=== PATIENT | male | born 1970 | race Caucasian/White ===

== ENCOUNTER 2024-01-12 09:11 | Day surgery (SDC) | payer OTHER ==
[2024-01-12] MEDS: LIDOCAINE 1% (10MG/ML) FOR IV START INTRADERMA PRN (09:55)
[2024-01-12] MEDS: LACTATED RINGERS 1,000 ML IV SCH (09:55)
[2024-01-12 10:26] VITALS: TEMP 97.5
[2024-01-12] MEDS ORDERED: PROPOFOL 10 MG/ML 20 ML VIAL IV ONE (10:40)
[2024-01-12 11:14] VITALS: RESP 16
--- NOTE | 2024-01-12 11:39 | P.PCN ---
Date of Procedure: 01/12/24 Procedure(s) Performed: BRIEF HISTORY: Patient is a 53-year-old pleasant white man scheduled for an elective colonoscopy as a part of screening for colon cancer. PROCEDURE PERFORMED: Colonoscopy. PREOPERATIVE DIAGNOSIS: Screening for colon cancer. IV sedation per Anesthesia. PROCEDURE: After informed consent was obtained, the patient, was brought into the endoscopy unit. IV sedation was administered by Anesthesia under continuous monitoring. Digital rectal examination was normal. Initially the Olympus CF-160 flexible video colonoscope was then inserted in the rectum, gradually advanced into the cecum without any difficulty. Careful examination was performed as the scope was gradually being withdrawn. Ileocecal valve and the appendiceal orifice were visualized and appeared normal. Prep was excellent. Mucosa of the cecum, ascending colon, transverse colon, descending colon, sigmoid colon, and rectum appeared normal. Scattered sigmoid diverticulosis. Retroflexion was performed in the rectum and no lesions were seen. The patient tolerated the procedure well. IMPRESSION: Normal-appearing colon from rectum to cecum with norms of colorectal neoplasia. Scattered sigmoid diverticulosis. RECOMMENDATIONS: Findings of this examination were discussed with the patient as well as his family. He was advised to have repeat screening colonoscopy in 10 years.
[2024-01-12 11:59] VITALS: BP 126/68; PULSE 78
== END 2024-01-12 11:31 | disposition home or self-care (01) ==
LOC: ORWHC2ENDO 09:11
PROVIDERS: ATTEND Internal Medicine Gastroenterology
DX: Z12.11 Encounter for screening for malignant neoplasm of colon (principal); K57.30 Diverticulosis of large intestine without perforation or abscess without bleeding; K21.9 Gastro-esophageal reflux disease without esophagitis; F17.200 Nicotine dependence, unspecified, uncomplicated; Z88.0 Allergy status to penicillin; Z88.6 Allergy status to analgesic agent; Z79.899 Other long term (current) drug therapy
CPT/HCPCS: 45378; J2704

== ENCOUNTER → 2024-05-11 | Outpatient (CLI) | payer OTHER ==
--- NOTE | 2024-05-29 09:03 | MR ---
Site ID synapse default Patient Gerson Dowell ID [id number] 1970 Age/Gender: 53Y, M Order # N/A Procedure MR cervical spine wo con Date 05/11/2024 6:34:08 AM EXAMINATION TYPE: MR cervical spine wo con DATE OF EXAM: 05/11/2024 COMPARISON: Cervical spine radiograph 05/07/2024 HISTORY: 53-year-old male with history of neck pain, numbness down both arms TECHNIQUE: Multiplanar, multisequence images of the cervical spine were acquired without contrast. FINDINGS: Alignment: The cervical vertebral bodies have preserved heights. Alignment is within normal limits gi keshia patient positioning. Bones: Bone signal is within normal limits. Multilevel degenerative disc disease is noted most prono unced at C5-C7. Cord: The spinal cord is unremarkable with regards to their signal intensity and morphology. Discs: Multilevel disc desiccation is present. C2-C3: No significant disc pathology. The spinal canal is patent. No neural foraminal stenosis. C3-C4: Minimal central disc bulge with minimal effacement of the anterior thecal sac. Uncovertebral j oint hypertrophy resulting in mild bilateral neural foraminal stenosis. C4-C5: Small central disc protrusion with minimal effacement of the anterior thecal sac. No signific ant neural foraminal stenosis. C5-C6: Eccentric right posterior disc osteophyte complex with extension into the subarticular and for aminal zone. Results in mild central canal stenosis. There is severe right neuroforaminal stenosis. T he left neural foramen is patent. C6-C7: Broad-based disc bulge with minimal effacement of the anterior thecal sac. Uncovertebral joint hypertrophy resulting in mild left neural foraminal stenosis. The right neural foramen is patent. C7-T1: No significant disc pathology. The spinal canal is patent. No neural foraminal stenosis. Other: None. IMPRESSION: Mild multilevel disc degeneration as described above. Mild central canal stenosis secondary to university lecturer ior distance accomplished at C5-C6 which contributes to severe right neural foraminal stenosis.
== END | disposition home or self-care (01) ==
LOC: RADMRIMAIN 07:30
PROVIDERS: ATTEND Orthopaedic Surgery
DX: M47.812 Spondylosis without myelopathy or radiculopathy, cervical region (principal); M48.02 Spinal stenosis, cervical region; M50.10 Cervical disc disorder with radiculopathy, unspecified cervical region
CPT/HCPCS: 72141

== ENCOUNTER → 2024-10-09 | Outpatient (CLI) | payer OTHER | END | disposition home or self-care (01) | LOC: LABWHC1 08:37 | PROVIDERS: ATTEND Orthopaedic Surgery | DX: Z01.812 Encounter for preprocedural laboratory examination (principal); M50.20 Other cervical disc displacement, unspecified cervical region; M50.122 Cervical disc disorder at C5-C6 level with radiculopathy; Z22.322 Carrier or suspected carrier of Methicillin resistant Staphylococcus aureus | CPT/HCPCS: 86850; 86900; 86901; 87070 ==

== ENCOUNTER 2024-10-14 05:37 | Day surgery (SDC) | payer OTHER ==
--- NOTE | 2024-10-13 19:58 | P.HPOR ---
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 He reports constant, moderate to severe aching neck pain with associated LUE radiculopathy, heaviness, and weakness. His symptoms are particularly affecting his right-hand dominant activities, including writing. Physical exam reveals decreased motor strength in the right upper extremity (3- 4/5), positive Spurling's sign on the right, and present Contreras's sign on the right. Imaging demonstrates a large central to right paracentral disc herniation at C5-C6 causing moderate to severe central and right foraminal stenosis, with associated local kyphotic changes. DEMOGRAPHICS: Age: 53 year Height: 6'2" Weight: 255 lbs BP:136/72 BMI: 32.74 kg/m2 Occupation: *Electronic repair CC: cervical pain VAS: 3-5 HISTORY: Mr. Dowell presents to the office today, 10/09/24, for a pre-operative appointment preceding his C5-6 ACDF. He states that he has severe neck pain that is progressive over the past 4 months as well as LUE radiculopathy and now a feeling of heaviness and weakness. He states that this pain is aching and constant and can be moderate to severe at times. He states that he had an MRI. He states that he has done physical therapy which helped somewhat she preceded therapy in 2018 which helped. But now does not help. He states that his symptoms are now progressive despite taking ibuprofen 800 mg 3 times a day which is now causing his stomach to hurt and forcing him to take omeprazole. He denies any trauma to the area he is [id number] which is causing him to have issues with writing. H8 Patient denies any f/c/sob/cp, perineal numbness or tingling, bowel, or bladder incontinence/retention. Patient is ambulatory under his own power P1 The patients past social, medical, family, surgical history, as well as review of systems, have been reviewed. Please refer to the History and Physical form that has been scanned into our electronic medical record system. R0 16 points review of systems completed and as stated in HPI, all other systems reviewed are negative. PAST TREATMENTS: PAST IMAGING: YES -x-ray MRI TRAUMA RELATED: NO - WORK RELATED: NO - PT IN LAST 6 MONTHS: YES -2 different rounds of therapy as well as therapy in 2018 none of which provided relief PHYSICIAN DIRECTED HOME EXERCISE PROGRAM: YES - ACTIVITY MODIFICAITON: YES -limited lifting bending twisting pushing and pulling MEDICATIONS: YES -Motrin 800 course of steroid ALTERNATIVE INTERVENTIONS (CHIROPRACTIC, ACCUPUNCTURE, MASSAGE, RICE): YES -chiropractics BRACING: NO - INJECTIONS (LATOYA, TF, RFA): no - MEDICAL HISTORY: Past Medical History: REVIEWED STATED IN CHART Past Surgical History: REVIEWED STATED IN CHART Social History: REVIEWED STATED IN CHART SMOKING: Never smoker ETOH: None SUBSTANCES: None Family History: REVIEWED STATED IN CHART P1 Current Medications: Rx: ibuprofen 800 mg tablet Ref: 0 Instructions: take 1 tablet (800 mg) by oral route 3 times per day with food Rx: omeprazole 20 mg capsule,delayed release Ref: 0 Instructions: take 1 capsule (20 mg) by oral route once daily 30 minutes to 1 hour before a meal Rx: ibuprofen 800 mg tablet Ref: 0 Instructions: take 1 tablet (800 mg) by oral route 3 times per day with food Rx: omeprazole 20 mg tablet,delayed release Ref: 0 P1 PHYSICAL EXAM: PC2 PC1 General: AOX3, NAD, Well hydrate, well nourished PN1 HEENT: No lumps or masses Extremities: No color changes, no pooling INTEGUMENT: Appearance: Normal color and turgor Surgical Incisions: Hairy Patches: ABSENT Dorsal Skin Dimples: Normal [employer] spots: ABSENT PALPATION: TTP Midline: yes Paracervical: yes Parathoracic: NO Paralumbar: NO SIJ TESTING: not tested POSTURAL BALANCE: Coronal: BALANCED Sagittal: BALANCED Shoulder height: LEVEL Pelvic Girdle: LEVEL ROM AND APPEARANCE: Neck: RESTRICTED Lumbar: UNRESTRICTED Shoulders: Symmetrical Hips: Symmetrical Knees: Symmetrical Hands: Symmetrical Feet: Symmetrical VASCULAR STATUS: PALPABLE PULSES B/L UE AND LE 2/4 RAD/ULNAR/DP/PT Edema: NONE NEUROLOGICAL EXAMINATION: Mental Status: Awake, alert, fully oriented with normal attention, concentration, and memory. Fluent appropriate speech. CRANIAL NERVES: I: Olfactory not assessed. II: Visual acuity normal, no visual field deficit noted with confrontation. III, IV: Normal pupillary reflexes & intact extraocular movements without nystagmus. V, : Intact symmetrical facial sensation. VII: Intact symmetrical facial motor movement: Hearing intact. IX, X: Intact gag, swallow, & normal voice. XI: Sternocleidomastoid, trapezius function intact. XII: Tongue midline with normal movements. TENSIONING: * L'HERMITTE'S SIG:NEG SPURLUNG'S SIGN:POS, RIGHT CUBITAL TUNNEL COMPRESSION:NEG TINELS AT WRIST:NEG STRAIGH LEG RAISE:NEG CONTRALATERAL STRAIGHT LEG RAISE: NEG MOTOR EXAM (0-5/5, NT) Muscle appearance: Symmetrical, without signs of atrophy or dystrophy UPPER EXTREMITY RIGHT LEFT Shoulder Abduction 4 5 Biceps 4 5 Triceps 4 5 Wrist Extension 4 4 Hand Intrinsics 4 3 Panel Beater 3 4 LOWER EXTREMITY RIGHT LEFT Hip Flexion 5 5 Knee Extension 5 5 Knee Flexion 5 5 Dorsiflexion 5 5 Plantarflexion 5 5 EHL 5 5 FHL 5 5 REFLEXES (0-4/2, NT): RIGHT LEFT Bicep 3 3 Brachioradialis 3 3 Triceps 2 2 Patellar 2 2 Achilles 2 2 PATHOLOGICAL REFLEXES: RIGHT LEFT CONTRERAS'S PRESENT ABSENT CLONUS ABSENT ABSENT BABINSKI ABSENT ABSENT RECTAL TONE: INTACT/NT SENSATION (0-4, NT): Sensation intact to LT and Pain * C5-T1 distribution BUE * L2-S2 distribution BLE *Exceptions below* DERMATOMAL DEFICIT/RADICULAR PATTERN: C5-C6 right GAIT AND FUNCTIONAL EVALUATION: AMBULATORY AID none ROMBERG'S TEST INTACT HAND AND FINGER DEXTERITY INTACT YES DYSDIADOCHOKINESIA EXAM NEG B/L YES TOE/HEEL WALK INTACT WITH GOOD BALANCE YES SQUAT AND RISE W/O ASSISTANCE TO 60 DEG KNEE FLEXION YES SINGLE LEG STANCE INTACT TRENDELENBURG NEG IMAGING: XRAY Date: 05/07/2024 Location: [facility] Region: cervical Views: AP lateral flexion-extension and oblique IMAGES ARE REVIEWED WITH THE PATIENT IN OFFICE AND DEMONSTRATE THE FOLLOWING: FINDINGS: images reviewed and demonstrate anterior osteophytic changes C5-C6 with this collapsed disc height loss and facet arthrosis. There are no fractures noted at this time. On flexion-extension views there is accentuated kyphotic change at C5-C6 with retrolisthesis on extension films. Occipital cervical joints are stable at this time. MRI Date: 05/11/2024 Location: [facility] Region: cervical without Contrast: N IMAGES ARE REVIEWED WITH THE PATIENT IN OFFICE AND DEMONSTRATE THE FOLLOWING: FINDINGS: this demonstrates C5-C6 disc herniation and degenerative which is large and centrally located somewhat paracentral on the right-hand side causing right foraminal stenosis as well as central stenosis which is moderate to severe. There is again local kyphotic change secondary to the collapse and disc herniation. Anterior osteophytic changes noted at C5 6 C6 7. There is small disc bulge at C6 7 noted as well. No acute fractures noted occipital cervical C1 2 joints are stable. IMPRESSION: It was my pleasure to have seen and examined Gerson. I reviewed the patient's clinical syndrome, physical findings, and imaging studies during the appointment today. It is my impression that the patient has a diagnosis of. 1.C5-C6 herniated nucleus pulposus 2.right upper extremity radiculopathy 3.right upper extremity weakness 4. Neck pain PLAN: DISCUSSION: -I discussed with the patient his clinical signs and symptoms as well as treatment options including nonoperative treatments treatments and different operative options. At this time the patient has progressive neurologic changes with neck pain which has been refractory to any conservative treatment has been going on for over 6 months at this time. Patient states that he would like a more permanent solution as he is getting frustrated with his day-to-day livings descending being limited due to this issues. He is ready and willing to proceed as outlined below SURGICAL RECOMMENDATION -C5-6 anterior cervical discectomy and fusion -We discussed the risks and benefits of this including risk of bleeding infection damage for any tissue risk of reoperation and the risks described the risk review below -he will obtain preoperative labs as well as clearance Surgical Procedure Risk Review Gerson Dowell is a 53 year old male presenting for evaluation of sudden onset of Right upper extremity weakness and paresthesias with neck pain is severe In our visit today we have had a chance to go over subjective complaints, physical examination findings and treatments, including the natural course history without intervention and various interventional options. The imaging demonstrates C5-C6 herniated nucleus pulposus with moderate to severe stenosis foraminal and central I explained to the patient that as his condition progresses it could cause continued neurologic changes progressive changes weakness painam, I recommend surgery in the form or a: C5-C6 anterior cervical discectomy and fusionprocedure at length with Mr. Dowell. The patient agreed to consider pursuing the procedure mentioned above. Plan: 1. C5-C6 anterior cervical discectomy and fusion 2. Follow up with PCP for surgical clearance 3. Review of surgical risks and benefits as well as an educational packet on the proposed surgical procedure. Risks: All surgical procedures come with inherent risks, including those related to positioning, anesthesia, intraoperative findings, and postoperative complica tions. It is important to understand that surgery does not come with any guarantee of a successful outcome as complications and adverse events are always possible. The patient was given a handout in office today discussing the surgical procedure and risks associated with the intervention, both of which were discussed with the patient. These risks include but are not limited to the following: ? Experiencing same, different or even worse symptoms in back, neck, arms, or legs compared to before surgery. ? Requiring further surgery or other forms of treatment presently or at s ome time in the future at same or other levels of the intended spine surgery. ? On an extreme but fortunately relatively rare basis severe complication such as blindness, stroke, heart attack, temporary and/or permanent nerve injury, paralysis, coma, or may occur, sometimes without known explanation. ? Surgical complications may include but are not limited to risk of infection, fluid accumulation in the surgical dissection site, including a seroma or hematoma, that requires additional surgery, wound drainage, bleeding, new numbness or weakness, vision changes/loss, spinal fluid leakage, non-healing and/or infected incision, headaches, difficulty or inability to swallow, hoarseness, hemopneumothorax, pneumothorax, impotence, retrograde ejaculation, vaginal dryness; injury to nerves, spinal cord, blood vessels, lymphatics or other vital organs (i.e., bowel injury, injury to the great vessels); heterotopic bone formation; complications related to the hardware such as s crews, rods, cages including misplaced hardware, device failure, instrumentation at the wrong spine level, hardware fracture/breakage, or hardware loosening; vertebral failure of the spinal column above or below the newly placed hardware; retained surgical instrumentations or devices and the need for further surgery. ? Medical risks of the planned spine surgery include but are not limited to generalized Infections to the whole body or local areas outside of the surgical site (sepsis), heart attack, bleeding, anaphylaxis, meningitis, seizure, epilepsy, hearing loss, burn reina, laceration of the head or other areas of the body, bruising, hypersensitivity of the skin, bladder over distension; allergic reaction; shoulder injury related to positioning; fat, blood and air clots to ot her areas of the body like heart, lungs, brain; failure of internal organs such as lungs, kidneys, liver and excessive bleeding. If blood transfusions are necessary, note that transfusions may cause intolerance reactions such as anaphylaxis or other complex reactions. Despite best efforts, the results of spine surgery might not heal in terms of bone, soft tissues such as skin, fascia, ligaments, and joints. Additionally, in order to achieve best possible results, spine surgery may be carried out beyond the initially planned levels and involve decompression, fusion including insertion of hardware at levels other than the original intended area of surgical interest change some portions of the procedure in order to ensure the best possible outcomes. With spine surgery and spinal fusion, there are different off label uses of instrumentation (devices, implants and hardware) as well as biological substances (bone morphogenic proteins, demineralized bone matrix) as well as using extra bone from allograft sources (i.e. cadaver bone) or autograft (iliac crest bone, ribs, or the spine itself). The patient has been given information about these practices and their inherent risks and benefits. [facility] Physician Assistants are medically trained surgical providers who function in the outpatient, inpatient, and operating room setting under the direct supervision of the attending surgeon.They assist in the operating room with direct supervision of the attending surgeons. The patient has had a chance to review all the listed information, has been given print outs detailing this information, and has had all his/her questions answered to their satisfaction. It was my pleasure to have seen and examined Mr. Dowell. In our visit today we have had a chance to go over my understanding of our patient's current condition, the natural course history without intervention and various interventional options. Questions were invited and answered, and the patient wishes to proceed as outlined above. I have seen and examined the patient for 25 minutes and we have spent more than 50% of the time in repeat and detailed counseling about the patient's condition, its natural course history with out and as much as can be predicted with surgery and re-review of various surgical treatment options. In conclusion,Mr. Dowell and his spouse/partner requested we proceed with the above suggested surgery and are willing to accept risks and limitations of the suggested surgery as nature of the disease process and our best attempts at treatment for the condition. 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 The NSAID usage has resulted in gastrointestinal issues requiring omeprazole. Despite these interventions, the patient demonstrates progressive n eurological decline with documented right upper extremity weakness, particularly affecting his dominant hand function. MRI findings correlate with clinical symptoms, showing significant neural compression at C5-C6 that threatens further neurological deterioration if left untreated. Surgical Rationale: Given the patient's progressive neurological deficits, correlation of imaging findings with clinical symptoms, and failure of extensive conservative measures over 6+ months, surgical intervention via C5-C6 anterior cervical discectomy and fusion (ACDF) is indicated. The presence of moderate to severe stenosis with documented weakness, positive Contreras's sign, and functional decline in his dominant hand activities suggests potential for permanent neurological injury without intervention. The chosen surgical approach will address both the neural compression and local kyphotic changes, with the goal of preventing further neurological deterioration and providing more definitive symptom relief than failed conservative measures FOLLOW UP: *POST-OP PLAN AT NEXT VISIT: * RECHECK PATIENT EDUCATION: Medications Reviewed: YES In our visit today Mr. Dowell and I have had a chance to go over my understanding of the patient's current condition, the natural course history without intervention and various interventional options. Questions were invited and answered, and the patient wishes to proceed as outlined above. I will be sure to keep you updated after Mr. Dowell returns here for further follow-up. Thank you again for your referral. Please do not hesitate to contact me if you have any further questions. Signed and authenticated by: Alejandro Boo [facility] [address] [facility], [address] [address] . This message is confidential, intended only for the named recipient(s) and may contain information that is privileged or exempt from disclosure under applicable law. If you are not the intended recipient(s), you are notified that the dissemination, distribution or copying of this information is prohibited. If you received this message in error, please notify the sender then delete this message. Past Medical History Past Medical History: GERD/Reflux, Osteoarthritis (OA) Additional Past Medical History / Comment(s): neck pain. History of Any Multi-Drug Resistant Organisms: None Reported Additional Past Surgical History / Comment(s): wisdom teeth removed, colonoscopy Past Anesthesia/Blood Transfusion Reactions: No Reported Reaction, Family History of Problems w/ Anesthesia Additional Past Anesthesia/Blood Transfusion Reaction / Comment(s): dad had some issues w/O2 sats dropping after knee surg., slow to wake up Smoking Status: Former smoker - Past Family History Father Family Medical History: No Reported History Medications and Allergies Home Medications Medication Instructions Recorded Confirmed Type Ibuprofen [Motrin] 800 mg PO Q8H PRN 01/11/24 10/10/24 History Omeprazole 20 mg PO DAILY 10/10/24 10/10/24 History Unk Multi Vitamin 1 tab PO DAILY 10/10/24 10/10/24 History Allergies Allergy/AdvReac Type Severity Reaction Status Date / Time naproxen [From Naprosyn] Allergy Unknown Verified 10/10/24 14:15 Penicillins Allergy Rash/Hives Verified 10/10/24 14:15 Physical Examination Osteopathic Statement: *. No significant issues noted on an osteopathic structural exam other than those noted in the History and Physical/Consult.
[~2024-10-14 05:37] MED LIST: TRANEXAMIC 1,000 MG/100ML-NACL 1,000 MG in SALINE 1 100ML.BAG IVPB PRN
[2024-10-14] MEDS: LACTATED RINGERS 1,000 ML IV SCH (06:41)
[2024-10-14] MEDS: IV FLUID CONTINUATION 1,000 ML IV ONE ×2 (06:41)
[2024-10-14] MEDS: ACETAMINOPHEN TAB 500 MG TAB PO PRN (06:52)
[2024-10-14] MEDS: GABAPENTIN 300 MG CAP PO PRN (06:52)
[2024-10-14] MEDS: ONDANSETRON 4 MG/2 ML VIAL IVP PRN (06:53)
[2024-10-14] MEDS ORDERED: HYDROmorphone 0.5 MG/0.5 ML SYRINGE IVP PRN (07:00)
[2024-10-14] MEDS ORDERED: MIDAZOLAM 2 MG/2 ML VIAL IV PRN (07:00)
[2024-10-14] MEDS ORDERED: fentaNYL (PF) 50 MCG/ML 2 ML AMP ONE (07:21)
[2024-10-14] MEDS ORDERED: SUCCINYLCHOLINE CHLORIDE 200 MG/10 ML VIAL IV ONE (07:21)
[2024-10-14] MEDS ORDERED: KETAMINE HCL IN 0.9 % NACL 50 MG/5 ML SYRINGE ONE (07:21)
[2024-10-14] MEDS ORDERED: PROPOFOL 10 MG/ML 20 ML VIAL IV ONE (07:21)
[2024-10-14] MEDS ORDERED: LIDOCAINE 1% INJ 10MG/ML (20 ML MDV) ONE (07:21)
[2024-10-14] MEDS ORDERED: GLYCOPYRROLATE 0.2 MG/ML 2 ML VIAL ONE (07:21)
[2024-10-14] MEDS ORDERED: MIDAZOLAM 2 MG/2 ML VIAL ONE (07:21)
[2024-10-14] MEDS ORDERED: ROCURONIUM 10 MG/ML (5 ML VIAL) IV ONE (07:21)
[2024-10-14] MEDS ORDERED: NEOSTIGMINE 1 MG/ML 10 ML VIAL ONE (07:21)
[2024-10-14] MEDS ORDERED: TRANEXAMIC 1,000 MG/100ML-NACL PREMIX BAG ONE (07:21)
[2024-10-14] MEDS: THROMBIN (BOVINE) 5,000 UNIT VIAL TOPICAL ONE (08:05)
--- NOTE | 2024-10-14 09:03 | FL ---
EXAMINATION TYPE: FL guidance operating room, XR cervical spine limited DATE OF EXAM: 10/14/2024 FLUOROSCOPY 4 intraoperative fluoroscopic images are submitted. This demonstrates sequentially operation for C5-C 6 ACDF. On the final image, hardware appears appropriately positioned. ET tube is present. Anterior cervical fusion, 13sec fl time, [id number] [id number]. [facility], Workstation: [email or web address] - [employer], 10/14/2024 9:01 AM
--- NOTE | 2024-10-14 09:14 | P.OP ---
Date of Procedure: 10/14/24 Preoperative Diagnosis: 1.C5-C6 herniated nucleus pulposus 2.right upper extremity radiculopathy 3.right upper extremity weakness 4. Neck pain Postoperative Diagnosis: 1.C5-C6 herniated nucleus pulposus 2.right upper extremity radiculopathy 3.right upper extremity weakness 4. Neck pain Procedure(s) Performed: 1. C5-6 ANTEERIOR CERVICAL ARTHRODESIS 2. C5-6 ANTERIOR INSTRUMENTATION 3. 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 He reports constant, moderate to severe aching neck pain with associated LUE radiculopathy, heaviness, and weakness. His symptoms are particularly affecting his right-hand dominant activities, including writing. Physical exam reveals decreased motor strength in the right upper extremity (3- 4/5), positive Spurling's sign on the right, and present Salazar's sign on the right. Imaging demonstrates a large central to right paracentral disc herniation at C5-C6 causing moderate to severe central and right foraminal stenosis, with associated local kyphotic changes. Description of Procedure: C5-6 ACDF The patient was seen and examined in the preoperative area. All preoperative protocols were followed. Informed consent was obtained, risks and benefits of the procedure were discussed at length. Risks including bleeding infection damage to the surrounding tissue and risk of reoperation were discussed with the patient. Risk of anesthesia up to and including was discussed with the patient. These are outlined in the risk review. They were willing to accept these risks and all the risks of surgery. The patient was given a weight-based dose of antibiotics in the form of 2 g Ancef. The patient was seen and evaluated by the anesthesia team who deemed them fit for surgery. The site was marked, the patient was willing to proceed with the procedure. The patient was transferred to the operative suite by the Department of anesthesia. They were then drifted off to sleep by the department anesthesia and GETA was performed. The patient tolerated this well. Zayas catheter was placed by nursing staff, a-traumatically. Once confirmation of lines and ventilation the patient was transferred to a Supine Donta table very carefully. All bony prominences including wrists, elbows, axilla, chest, hips, and thighs, and feet were padded very well. Special attention was paid to the genitalia, and these were padded accordingly. SCDs were placed on bilateral lower extremities and were connected. Arms were well padded and placed at their side thumbs up. Once in position, again we confirmed good ventilation capabilities and that lines were running appropriately. The patients Cervical spine was then exposed. 1010s were placed outlining the incision site. Standard alcohol was used to clean the incision site and allowed to dry. C-arm was used to bio-shen the patient and confirm level for incision which was marked with a skin marker. Operative briefing was performed with all teams and everyone in agreement to proceed. The patient was then prepped and draped in a normal sterile fashion. Timeout was then performed, and all parties agreed with the procedure to be performed. Transverse skin incision was then made on the right side of the patient's neck 3 cm and dissection taken down to the platysma which was split transversely. Sub platysma flap was made, and interval identified between SCM and medial structures. Omohyoid was visualized and protected. Blunt dissection taken down to the anterior cervical fascia which was identified. Blunt probe was then placed and lateral image taken which confirmed levels for operation. These levels were then marked with a bovi. Subperiosteal dissection of the longissimus muscles were then done over these levels identifying uncovertebral joints bilaterally. Retractor was then placed deep to these muscles and held in place with a bed arm. Thorsby pins were placed into C5 and C6 and gentle distraction taken out over the levels. Yue rongeur used to remove disc material. Operating microscope brought in for visualization. Complete discectomy performed at this level with curette, rongure and pituitary. High speed shobha used to remove osteophytes anteriorly and posteriorly until PLL was identified. 6-0 up curette then used to identify the canal and resect the PLL. 2-0 and 3-0 Kerrison used then to remove PLL and disc herniation and performed b/l foraminotomies. Once good decompression was accomplished, meticulous hemostasis was performed. Sizers were then placed under lateral fluoroscopy until the desired height and lordosis. Cage was then selected, packed with autograft and allograft and placed under lateral imaging. Once in good position it was tested and stable. Motors run before and after cage placement were stable. The wound was irrigated, and autograft placed lateral to the cage anteriorly for fusion. Thorsby pin was then removed from C5 and C6 and bone wax placed in their void. A separate, non-integrated plate was then selected and sized under lateral image. The plate was then placed with screws. Fixed screws drilled into C6 b/l and screws placed. Then screw placed into C5. Good purchase of all screws obtained and the locking mechanism was set. Final AP and lateral images taken confirmed good placement of hardware and good reduction and muslim of heig ht. The wound was then irrigated copiously with NSS. Surgicel placed deep in the wound. Layered closure then performed with 3-0 Vicryl in the platysma and subQ tissue. 4-0 Strata fix in the subcuticular tissue. The wound was then cleaned, and dried and skin glue placed. Once glue dried telfa, 4x4, drain sponge and tegaderms were placed. The patient was then transferred back to their hospital bed a-traumatically. The drain continued to hold suction. They were placed in a soft collar. They were then awakened by the department of anesthesia having tolerated the procedure well without complications.
[2024-10-14 09:24] VITALS: TEMP 97.5
[2024-10-14 10:19] VITALS: RESP 16
[2024-10-14] MEDS: HYDROcodone/APAP 7.5-325MG 1 EACH TAB PO ONE (11:04)
[2024-10-14 12:06] VITALS: BP 143/86; PULSE 86
== END 2024-10-14 12:15 | disposition home or self-care (01) ==
LOC: OR 05:37
PROVIDERS: ATTEND Orthopaedic Surgery
DX: M48.02 Spinal stenosis, cervical region (principal); M50.122 Cervical disc disorder at C5-C6 level with radiculopathy; M19.90 Unspecified osteoarthritis, unspecified site; K21.9 Gastro-esophageal reflux disease without esophagitis; Z87.891 Personal history of nicotine dependence; Z98.1 Arthrodesis status; Z88.6 Allergy status to analgesic agent; Z88.0 Allergy status to penicillin; Z79.1 Long term (current) use of non-steroidal anti-inflammatories (NSAID); Z79.899 Other long term (current) drug therapy
CPT/HCPCS: 22551; 22853; 22845; 20930; 20936; 72040; C1713; J2250; J0330; J2710; J0690; J2405; J2003; J3010; J2704; J1596